=== PATIENT | female | born 1990 | race Caucasian/White ===

== ENCOUNTER 2016-08-16 09:59 | Day surgery (SDC) | payer MEDICAID ==
[~2016-08-16] VITALS: Ht 172.7 cm; Wt 75.0 kg
[~2016-08-16 09:59] MED LIST: LACTATED RINGERS 1,000 ML IV SCH; LIDOCAINE/EPINEPHRINE 1%-1:100,000 (XYLOCAINE) 20ML VIAL ONE; OXYMETAZOLINE 0.05% NASAL SPRAY (AFRIN) 15 ML BTL ONE; SODIUM CHLORIDE FLUSH 3 ML SYR IV PRN; SODIUM CHLORIDE FLUSH 3 ML SYR IV SCH
[2016-08-16 10:29] VITALS: BP 147/86
[2016-08-16] MEDS: OXYMETAZOLINE 0.05% NASAL SPRAY (AFRIN) 15 ML BTL SCH ×3 (11:10→11:22)
[2016-08-16] MEDS ORDERED: OXYMETAZOLINE 0.05% NASAL SPRAY (AFRIN) 15 ML BTL ONE ×2 (11:16→12:46)
[2016-08-16] MEDS ORDERED: LIDOCAINE/EPINEPHRINE 1%-1:100,000 (XYLOCAINE) 20ML VIAL ONE (11:16)
[2016-08-16] MEDS ORDERED: MUPIROCIN 2% OINT 22 GM (BACTROBAN) TUBE TOP ONE (11:16)
[2016-08-16] MEDS ORDERED: PROPOFOL 20 ML IV ONE (11:27)
[2016-08-16] MEDS ORDERED: SUCCINYLCHOLINE 20 MG/ML 10 ML VIAL ONE (11:27)
[2016-08-16] MEDS ORDERED: ALFENTANIL 1,000 MCG/2 ML AMP IV ONE (11:28)
[2016-08-16] MEDS ORDERED: MIDAZOLAM 2 MG/2 ML (VERSED) VIAL ONE (12:12)
[2016-08-16] MEDS ORDERED: LIDOCAINE 5% ONE (12:33)
[2016-08-16] MEDS ORDERED: TRIAMCINOLONE ACET 40 MG/ML (KENALOG-40) 1 ML VIAL ONE ×2 (13:41→13:42)
[2016-08-16] MEDS ORDERED: morphine INJ 2 MG/ML 1 ML SYRINGE IV PRN (13:45)
[2016-08-16] MEDS ORDERED: D5 1/2 NS W/KCL 20 MEQ/L 1,000 ML IV SCH (13:45)
[2016-08-16] MEDS ORDERED: ACETAMINOPHEN/CODEINE 300MG/30 MG (TYLENOL #3) TABLET PO PRN (13:45)
[2016-08-16] MEDS ORDERED: ONDANSETRON 2 MG/ML (Z0FRAN) 2 ML VIAL IV PRN (13:45)
[2016-08-16] MEDS ORDERED: HYPERTONIC SALINE IRRIGATION 1000 ML BTL IR SCH (14:00)
[2016-08-16 14:07] VITALS: BP 127/78
[2016-08-16 14:20] VITALS: BP 120/68
[2016-08-16 14:33] VITALS: BP 152/92
== END 2016-08-16 14:44 | disposition home or self-care (01) ==
LOC: ASC 09:59
PROVIDERS: ATTEND Otolaryngology
DX: J34.2 Deviated nasal septum (principal); J32.0 Chronic maxillary sinusitis; J32.2 Chronic ethmoidal sinusitis; J34.9 Unspecified disorder of nose and nasal sinuses
CPT/HCPCS: 30520; 31240; 31254; 31267; 36415; 84132; A9270; J0330; J2250; J3301; J7120